=== PATIENT | female | born 1955 | race Caucasian/White ===

== ENCOUNTER → 2017-08-25 | Outpatient (CLI) | payer OTHER | LOC: BMCIMAGING 09:03 | PROVIDERS: ATTEND Orthopaedic Surgery ==

== ENCOUNTER → 2017-11-09 | Outpatient (CLI) | payer OTHER | LOC: BMCIMAGING 15:01 | PROVIDERS: ATTEND Internal Medicine | DX: Z12.31 Encounter for screening mammogram for malignant neoplasm of breast (principal) ==

== ENCOUNTER 2018-06-23 20:00 | Emergency (ER) | payer OTHER ==
--- NOTE | 2018-06-23 20:55 | EDPHY ---
H & P Time Seen by Provider: 06/23/18 20:54 HPI/ROS: Chief complaint. Fall HPI. 63-year-old female trip and fall at about 6:30 p.m. While walking her dog. She fell on her face and her glasses cutter cheek and then she split her lower lip. No dental trauma. No loss of consciousness. No neck pain, chest pain, abdominal pain, back pain, injury to arms or legs. No visual change. Significant swelling to the right cheek. She is not on blood thinners ROS Constitutional. no fever/chills, no weakness Eyes. no problems with vision ENT. no sore throat, no nasal drainage; right facial swelling Cardiovascular. no chest pain Respiratory. no shortness of breath, no cough Abdominal. no abdominal pain, no nausea/vomiting, no diarrhea . no problems urinating MS. no calf pain/swelling, no neck/back pain, no joint pain Skin. Right cheek laceration and swelling, lower lip laceration Lymph. no swollen glands Neuro. no headache, no dizziness, no difficulty walking or with speech Past Medical/Surgical History: Past medical history is significant for chronic back pain Social History: Life partner, nonsmoker, no alcohol Smoking Status: Never smoked Physical Exam: General Appearance: Alert well-developed female mild distress vital signs stable Eyes: Pupils equal and round no pallor or injection. ENT, tympanic membranes are normal. No hemotympanum or Curry sign. No oral pharyngeal or dental trauma. Vertical laceration through vermilion border on the lower lip; significant swelling to the right cheek Respiratory: There are no retractions, lungs are clear to auscultation. Cardiovascular: Regular rate and rhythm. Gastrointestinal: Abdomen is soft and nontender, no masses, bowel sounds normal. Neurological: Awake and alert, sensory and motor exams grossly normal. Skin: Laceration to the right cheek with swelling Musculoskeletal: No C, T, L-spine tenderness Extremities symmetrical, full range of motion. Psychiatric: Patient is oriented X 3, there is no agitation. Constitutional: Initial Vital Signs Temperature (C) 37.2 C 06/23/18 20:07 Heart Rate 93 06/23/18 20:07 Respiratory Rate 16 06/23/18 20:07 Blood Pressure 146/122 H 06/23/18 20:07 O2 Sat (%) 92 06/23/18 20:07 O2 Delivery Mode Room Air Allergies/Adverse Reactions: No Known Allergies Allergy (Verified 06/23/18 20:10) Home Medications: Medication Instructions Recorded Hydrocodone/APAP 5/325 [[place] 2 tab PO Q6 PRN 12/10/14 5/325 (*)] Multivitamins [Multivitamin (*)] 1 each PO DAILY 12/10/14 Hydrocodone/APAP 5/325 [[place] 1 - 2 each PO Q4-6PRN PRN #20 tab 06/07/16 5/325] Baclofen 06/23/18 Citalopram 06/23/18 traMADol 06/23/18 Medical Decision Making - Diagnostics Imaging Results: Imaging Impressions Face CT 06/23/18 21:05 Impression: No evidence of acute, displaced fracture. Dr. Rocha was notified of these findings by telephone at 10:00 PM on 06/23/[address] reviewed by me and discussed with radiologist shows no fracture Procedures: Procedure: Laceration repair. Verbal consent was obtained from the patient. The 2.5 cm laceration on the right cheek was anesthetized in the usual fashion. The wound was irrigated, draped and explored to its base with a gloved finger. There were no deep structures involved. No tendon injury was identified. The wound was repaired with six 6-0 mprolene sutures. The wound repair was simple. The procedure was performed by myself. Procedure: Laceration repair. Verbal consent was obtained from the patient. The 1 cm laceration on the lower lip through vermilion border was anesthetized in the usual fashion. The wound was irrigated, draped and explored to its base with a gloved finger. There were no deep structures involved. No tendon injury was identified. The wound was repaired with six 6-0 prolene sutures. The wound repair was simple. The procedure was performed by myself. ED Course/Re-evaluation: Re-evaluation at 10:00 p.m. Patient is stable. She and I discussed imaging studies, treatment plan including criteria for return importance of follow-up further evaluation. She expresses understanding and agreement Differential Diagnosis: I considered facial fracture, foreign body retained, infection potential. No other evidence for trauma to the spine or chest or abdomen Departure - Departure Disposition: Home, Routine, Self-Care Clinical Impression: Fall Qualifiers: Encounter type: initial encounter Qualified Code(s): W19.XXXA - Unspecified fall, initial encounter Facial laceration Qualifiers: Encounter type: initial encounter Qualified Code(s): S01.81XA - Laceration without foreign body of other part of head, initial encounter Lip laceration Qualifiers: Encounter type: initial encounter Qualified Code(s): S01.511A - Laceration without foreign body of lip, initial encounter Condition: Good Instructions: Care For Your Stitches (ED) Additional Instructions: Lots of ice to your face next 24-48 hours. Ibuprofen and hydrocodone as needed for pain. Hydrocodone is 1 pill every 4-6 hours as needed for pain Keep cut clean and dry. You may shower with stitches in. Return for signs of infection. Stitches out 5 days Referrals: Soco Kincaid MD [Primary Care Provider] - 5-7 days, call for appt.
[2018-06-23] MEDS: HYDROCOD/APAP 5/325 PREPACK#6 BTL TAKEHOME ONE (22:16)
[2018-06-23 22:21] VITALS: BP 130/108
== END 2018-06-23 22:21 | disposition home or self-care (01) ==
PROC: 0HQ1XZZ Repair Face Skin, External Approach (ICD-10-PCS; principal; 2018-06-23)
PROC: 0CQ1XZZ Repair Lower Lip, External Approach (ICD-10-PCS; principal; 2018-06-23)
DX: S01.511A Laceration without foreign body of lip, initial encounter (principal); S01.411A Laceration without foreign body of right cheek and temporomandibular area, initial encounter; W01.0XXA Fall on same level from slipping, tripping and stumbling without subsequent striking against object, initial encounter; Y93.K1 Activity, walking an animal

== ENCOUNTER → 2018-12-09 | Outpatient (CLI) | payer OTHER | LOC: FIMAGING 07:42 | PROVIDERS: ATTEND Internal Medicine | DX: Z12.31 Encounter for screening mammogram for malignant neoplasm of breast (principal) ==